=== PATIENT | female | born 1960 | race African-American/Black ===

== ENCOUNTER 2018-09-02 16:24 | Inpatient (IN) | payer MEDICAID ==
[~2018-09-02] VITALS: Ht 167.6 cm; Wt 90.0 kg
[2018-09-02] MEDS ORDERED: MORPHINE SULFATE 4 MG/ML CPJ (NOT FOR IM USE) IV STA (18:22)
[2018-09-02] MEDS ORDERED: ONDANSETRON HCL 4MG/2ML INJ IV STA (18:22)
[2018-09-02] MEDS ORDERED: NITROGLYCERIN OINT 1GM/INCH UDPKT TD ONE (18:30)
[2018-09-02 18:57] LABS: BASOPHILS % 0.7 % (0.0-2.0); EOSINOPHILS % 2.7 % (0.0-5.0); HEMATOCRIT. 28.8 % (36.0-48.0); HEMOGLOBIN. 9.6 g/dL (12.0-16.0); LYMPHOCYTES % 28.3 % (20.0-50.0); MEAN CORPUSCULAR HEMOGLOBIN 31.3 pg (28.0-32.0); MEAN CORPUSCULAR VOLUME 94.2 fL (81.0-99.0); MEAN PLATELET VOLUME 7.9 fl (7.4-10.4); MONOCYTES % 7.1 % (2.0-8.0); NEUTROPHILS % 61.2 % (40.0-76.0); PLATELET 391 x1000/uL (130-400); RED BLOOD CELL COUNT 3.06 mill/uL (4.2-5.4); RED CELL DISTRIBUTION WIDTH 14.6 % (11.6-14.6)
[2018-09-02 19:01] LABS: CHLORIDE 104 mEq/L (98-107)
[2018-09-02 19:04] LABS: INR 1.1; PROTHROMBIN TIME 10.7 sec (9.1-11.1)
[2018-09-02 19:09] LABS: CREATINE KINASE 100 IU/L (26-192)
[2018-09-02 19:12] LABS: CREATINE KINASE MB FRACTION < 1.0 ng/mL (0.5-3.6)
[2018-09-02] MEDS ORDERED: POTASSIUM CHLORIDE 20MEQ TABLET SR PO ONE (20:00)
[2018-09-02] MEDS ORDERED: ALBUTEROL (0.083%) 2.5MG/3ML NEB HHN STA (20:51)
[2018-09-03] MEDS ORDERED: ACETAMINOPHEN 325MG TABLET PO PRN (09:30)
[2018-09-03] MEDS ORDERED: ONDANSETRON HCL 4MG/2ML INJ IV PRN (09:30)
[2018-09-03] MEDS ORDERED: NITROGLYCERIN 0.4MG TABLET SL SL PRN (09:30)
[2018-09-03] MEDS ORDERED: IPRATROPIUM/ALBUTEROL 0.5-3(2.5)MG/3ML NEB HHN PRN (10:15)
[2018-09-03] MEDS ORDERED: ALBUTEROL (0.083%) 2.5MG/3ML NEB ONE ×2 (10:34→11:13)
[2018-09-03 10:42] LABS: LDL CHOLESTEROL 98 mg/dL (5-100)
[2018-09-03 10:43] LABS: HDL CHOLESTEROL 69 mg/dL (40-59)
[2018-09-03 10:44] LABS: CREATINE KINASE 88 IU/L (26-192)
[2018-09-03 10:45] LABS: CREATINE KINASE MB FRACTION < 1.0 ng/mL (0.5-3.6)
[2018-09-03 12:00] VITALS: BP 144/77
[2018-09-03 12:15] VITALS: BP 144/77
[2018-09-03] MEDS ORDERED: IOHEXOL-350 100 ML BOTTLE ONE (14:08)
[2018-09-03 16:00] VITALS: BP 116/74
[2018-09-03] MEDS: ENOXAPARIN 40MG/0.4ML SYR SUBCUT SCH (18:10)
[2018-09-03 20:00] VITALS: BP 141/80
[2018-09-03] MEDS: METOPROLOL TARTRATE 25MG TABLET PO SCH (21:09)
[2018-09-03] MEDS: HYDROCODONE/ACETAMINOPHEN 5/325MG TABLET PO PRN (21:14)
[2018-09-03 22:44] LABS: CLARITY URINE CLEAR (CLEAR); COLOR URINE YELLOW (YELLOW); KETONES URINE NEGATIVE (NEGATIVE); LEUKOCYTE ESTERASE URINE NEGATIVE (NEGATIVE); NITRITE URINE NEGATIVE (NEGATIVE); OCCULT BLOOD URINE NEGATIVE (NEGATIVE); PROTEIN URINE NEGATIVE (NEGATIVE); SPECIFIC GRAVITY URINE 1.075 (1.005-1.030); UROBILINOGEN URINE 0.2 E.U./dL (0.2-1.0)
[2018-09-03 23:04] LABS: *AMPHETAMINES SCREEN URINE NEGATIVE (NEGATIVE); *BARBITURATES SCREEN URINE NEGATIVE (NEGATIVE); *BENZODIAZEPINES SCREEN URINE NEGATIVE (NEGATIVE)
[2018-09-03 23:05] LABS: *COCAINE SCREEN URINE NEGATIVE (NEGATIVE); CANNABINOID URINE SCREEN PRESUMTIVE POSITIVE (NEGATIVE); METHADONE URINE SCREEN NEGATIVE (NEGATIVE); OPIATES URINE SCREEN NEGATIVE (NEGATIVE); PHENCYCLIDINE URINE SCREEN NEGATIVE (NEGATIVE)
[2018-09-04] VITALS: BP 128/72
[2018-09-04 08:00] VITALS: BP 163/76
[2018-09-04 08:00] LABS: BASOPHILS % 0.9 % (0.0-2.0); EOSINOPHILS % 2.2 % (0.0-5.0); HEMATOCRIT. 30.3 % (36.0-48.0); HEMOGLOBIN. 9.9 g/dL (12.0-16.0); LYMPHOCYTES % 31.1 % (20.0-50.0); MEAN CORPUSCULAR HEMOGLOBIN 30.7 pg (28.0-32.0); MEAN CORPUSCULAR VOLUME 93.8 fL (81.0-99.0); MONOCYTES % 6.9 % (2.0-8.0); NEUTROPHILS % 58.9 % (40.0-76.0); PLATELET 441 x1000/uL (130-400); RED BLOOD CELL COUNT 3.23 mill/uL (4.2-5.4); RED CELL DISTRIBUTION WIDTH 14.4 % (11.6-14.6)
[2018-09-04] MEDS ORDERED: ASPIRIN 81MG TABLET PO SCH (09:00)
[2018-09-04] MEDS: METOPROLOL TARTRATE 25MG TABLET PO SCH (09:36)
[2018-09-04] MEDS: HYDROCODONE/ACETAMINOPHEN 5/325MG TABLET PO PRN (09:38)
[2018-09-04] MEDS: ENOXAPARIN 40MG/0.4ML SYR SUBCUT SCH (09:39)
[2018-09-04] MEDS ORDERED: ASPI-1158 PO (10:05)
[2018-09-04] MEDS ORDERED: HYDR25TA MT (10:05)
[2018-09-04] MEDS ORDERED: SIMV20TA6 MT (10:05)
[2018-09-04] MEDS ORDERED: ALBU18HF2 IH (10:13)
[2018-09-04] MEDS ORDERED: LOSA50TA20 MT (10:13)
[2018-09-04] MEDS ORDERED: LACTULOSE 20G/30ML UDC PO PRN (10:45)
[2018-09-04] MEDS ORDERED: LACTULOSE 20G/30ML UDC PO NR (10:45)
[2018-09-04 11:20] LABS: CHLORIDE 105 mEq/L (98-107)
[2018-09-04 12:00] VITALS: BP 131/84
[2018-09-04] MEDS ORDERED: DILTIAZEM HCL 120MG CAPSULE CD 24HR PO SCH (14:45)
[2018-09-04 15:52] VITALS: BP 131/84
[2018-09-04 16:00] VITALS: BP 148/84
== END 2018-09-04 18:12 | disposition home or self-care (01) | DRG 203 ==
LOC: ER 16:24 → 6WST 19:40 → EDBEDREQTM 19:54 → EDBEDREQ 19:54 → ENRESERV 09-03 10:00 → CANRESERV 09-03 10:00 → ENRESERV 09-03 10:53
PROVIDERS: ADMIT Internal Medicine; ATTEND Internal Medicine
DX: M94.0 Chondrocostal junction syndrome [Tietze] (principal); D64.9 Anemia, unspecified; E11.9 Type 2 diabetes mellitus without complications; E87.6 Hypokalemia; F10.10 Alcohol abuse, uncomplicated; M48.061 Spinal stenosis, lumbar region without neurogenic claudication; F12.90 Cannabis use, unspecified, uncomplicated; I10 Essential (primary) hypertension; J45.909 Unspecified asthma, uncomplicated; Z88.6 Allergy status to analgesic agent; Z98.51 Tubal ligation status
CPT/HCPCS: 36415; 71045; 71275; 72141; 72148; 80048; 80061; 80305; 82550; 82553; 82962; 83036; 83880; 84443; 84484; 93005; 93306; 94640; 99285; J1650; J7611; J7620; Q9967